=== PATIENT | female | born 1985 | race Caucasian/White ===

== ENCOUNTER 2017-02-24 09:04 | Emergency (ER) | payer SELFPAY ==
[2017-02-24 09:45] LABS: Hematocrit 39.5 % (36.0-47.0); Mean Platelet Volume 6.8 fL (7.4-10.4); Red Blood Cell (RBC) Count 3.77 mill/uL (4.20-5.40)
[2017-02-24 10:08] LABS: #Lymphocytes 1.8 thou/uL (1.20-3.40); #Monocytes 0.2 thou/uL (0.11-0.59); %Basophils 0.3 % (0.0-1.0); %Eosinophils 0.1 % (0.0-10.0); %Lymphocytes 29.5 % (21.0-51.0); %Monocytes 3.8 % (0.0-10.0); Macrocytosis SLIGHT = 6-15 cells (100X) (0-5/hpf)
[2017-02-24 10:48] LABS: Bilirubin Negative (Negative); Blood, Urine Moderate (Negative); Glucose, Urine (Dipstick) Negative (Negative); Ketone, Urine Negative (Negative); Nitrite Negative (Negative); Protein, Urine (Dipstick) Negative (Neg-Trace)
[2017-02-24 10:51] LABS: Bacteria/HPF None Seen HPF (None Seen); Hyaline Casts/LPF 4-6 HYALINE CAST LPF (0-3 Hyaline); Squamous Epithelial 0-3 HPF (0-3); WBC/HPF 0-3 HPF (0-3)
== END 2017-02-24 11:14 | disposition home or self-care (01) ==
LOC: ERS 09:04
DX: N92.0 Excessive and frequent menstruation with regular cycle (principal); J45.909 Unspecified asthma, uncomplicated; Z87.891 Personal history of nicotine dependence
CPT/HCPCS: 36415; 81003; 81015; 81025; 85025; 99284

== ENCOUNTER 2018-04-26 19:02 | Emergency (ER) | payer OTHER ==
--- NOTE | 2018-04-26 20:15 | RAD ---
PORTABLE CHEST ONE VIEW: 04/26/18 at 8:08 p.m. HISTORY: Cough and wheezing. FINDINGS: The heart size is normal. The lungs are well expanded without focal areas of consolidation, pneumotho races or pleural effusions. IMPRESSION: No radiographic evidence of acute cardiopulmonary process. POS: [facility]
== END 2018-04-26 20:17 | disposition home or self-care (01) ==
LOC: SCSER 19:02
DX: O99.512 Diseases of the respiratory system complicating pregnancy, second trimester (principal); J20.9 Acute bronchitis, unspecified; O99.332 Smoking (tobacco) complicating pregnancy, second trimester; Z3A.19 19 weeks gestation of pregnancy
CPT/HCPCS: 71045; 87804; 94640; J7620

== ENCOUNTER 2018-05-09 10:38 | Outpatient (CLI) | payer OTHER ==
--- NOTE | 2018-05-09 12:34 | ULT ---
OBSTETRIC SONOGRAM: HISTORY: evaluation. Second trimester gestation. FINDINGS: Multiple transabdominal sonographic views of the gravid uterus show a single intrauterine gestation i n cephalic presentation. Grade 0 placenta is posterior. The lower placental margin is approximately 2 cm from the internal cervical os. Amniotic fluid is within normal limits. Umbilical cord shows a normal insertion. Only 2 umbilical vessels are visualized sonographically. No gross intracranial abnormalities. spine and kidneys are intact as visualized. Measurements are as follows: Biparietal diameter 19 weeks 5 days Head circumference 20 weeks 2 days Abdominal circumference 21 weeks 3 days Femur length 21 weeks 6 days Estimated date of delivery based on today's sonogram is 09/20/2018. Hadlock percentile 33%. IMPRESSION: 1. Single viable intrauterine gestation with estimated gestational age based on today's sonogram of 20 weeks 6 days. 2. Low-lying placenta. 3. Two-vessel umbilical cord. POS: [facility]
== END 2018-05-09 10:39 | disposition home or self-care (01) ==
LOC: BICULT 10:38
PROVIDERS: ATTEND Family Medicine
DX: Z34.82 Encounter for supervision of other normal pregnancy, second trimester (principal); Z3A.20 20 weeks gestation of pregnancy
CPT/HCPCS: 76805

== ENCOUNTER 2018-08-10 08:17 | Emergency (ER) | payer OTHER ==
[2018-08-10] MEDS ORDERED: Acetaminophen 325 MG TAB ONE (09:15)
[2018-08-10 09:48] LABS: Bilirubin Negative (Negative); Blood, Urine Negative (Negative); Clarity CLEAR (Clear); Glucose, Urine (Dipstick) Negative (Negative); Leukocyte Negative (Negative); Nitrite Negative (Negative); Protein, Urine (Dipstick) Negative (Neg-Trace); Specific Gravity, Urine 1.008 (1.002-1.036); pH, Urine 7.5 (5.0-9.0)
== END 2018-08-10 10:05 | disposition home or self-care (01) ==
LOC: ERS 08:17 → L&D/OP 08:17 → EDSTATUS 08:26 → ERS 10:05
DX: O99.89 Other specified diseases and conditions complicating pregnancy, childbirth and the puerperium (principal); S39.012A Strain of muscle, fascia and tendon of lower back, initial encounter; S29.012A Strain of muscle and tendon of back wall of thorax, initial encounter; O99.513 Diseases of the respiratory system complicating pregnancy, third trimester; J45.909 Unspecified asthma, uncomplicated; Z87.891 Personal history of nicotine dependence; X58.XXXA Exposure to other specified factors, initial encounter; Z3A.35 35 weeks gestation of pregnancy
CPT/HCPCS: 81003; 99283

== ENCOUNTER 2018-09-11 09:59 | Inpatient (IN) | payer OTHER ==
[2018-09-11] MEDS ORDERED: Lidocaine 2% MPF 10 ML AMP (For Epidural Use) ONE (11:11)
[2018-09-11] MEDS ORDERED: NS w/ Oxytocin 10 units 500 ML ONE (11:28)
[2018-09-11] MEDS ORDERED: Butorphanol Tartrate 1 MG/ML VIAL SLOW IVP PRN (11:39)
[2018-09-11] MEDS ORDERED: NS / Oxytocin 40 units/1000ml 1,000 ML IV PRN (11:39)
[2018-09-11] MEDS ORDERED: Ondansetron PF 4 MG/2 ML Vial IVP PRN ×3 (11:39→21:14)
[2018-09-11] MEDS ORDERED: Lidocaine 1% (PF) 30 ML VIAL SC PRN (11:39)
[2018-09-11] MEDS ORDERED: Ibuprofen 800 MG TAB PO PRN (11:39)
[2018-09-11] MEDS ORDERED: Methylergonovine 0.2 MG/ML VIAL IM PRN (11:39)
[2018-09-11] MEDS ORDERED: Promethazine HCl 25 MG/ML VIAL IM PRN ×2 (11:39→14:30)
[2018-09-11] MEDS ORDERED: Misoprostol 200 MCG TAB PR PRN (11:39)
[2018-09-11] MEDS ORDERED: Carboprost 250 MCG/ML AMP IM PRN (11:39)
[2018-09-11] MEDS ORDERED: Diphenoxylate HCl/Atropine Tablet PO PRN (11:39)
[2018-09-11] MEDS ORDERED: HYDROcodone/Acetaminophen 5/325 mg Tablet PO PRN ×3 (11:39→21:14)
[2018-09-11] MEDS ORDERED: NS w/ Oxytocin 10 units 500 ML IV SCH ×2 (11:45)
[2018-09-11] MEDS: Lactated Ringer's 1,000 ML IV SCH ×2 (11:50→14:01)
[2018-09-11 12:30] LABS: Mean Corpuscular Hemoglobin 34.5 pg (27.0-31.0); Mean Corpuscular Volume 98.4 fL (78.0-98.0); Mean Platelet Volume 7.6 fL (7.4-10.4); Platelet Count 156 thou/uL (130-400); RBC Distribution Width 12.5 % (11.5-14.5); Red Blood Cell (RBC) Count 3.47 mill/uL (4.20-5.40); White Blood Cell (WBC) Count 7.7 thou/uL (4.8-10.8)
[2018-09-11 12:46] VITALS: BMI 28.4
[2018-09-11 13:13] LABS: Syphilis Antibody Nonreactive (Nonreactive); Syphilis Antibody Index 0.03 S/CO (<1.00 Non-Reactive)
[2018-09-11 13:14] LABS: HBSAg Index 0.41 S/CO (0-0.99); Hep B Surf Ag Non-Reactive S/CO (NonReactive)
[2018-09-11] MEDS ORDERED: Fentanyl 4 mcg/Bup 0.1% Cadd 100 ML ONE (13:56)
[2018-09-11] MEDS ORDERED: Eucerin (Mineral Oil/Petrolatum,White) 30 gm Jar TOP PRN (14:30)
[2018-09-11] MEDS ORDERED: diphenhydrAMINE 50 MG/ML VIAL IVP PRN (14:30)
[2018-09-11] MEDS ORDERED: Acetaminophen 325 MG TAB PO PRN (14:30)
[2018-09-11] MEDS ORDERED: Communication Order-Pharmacy FS SCH (14:30)
[2018-09-11] MEDS ORDERED: Naloxone HCl 0.4 mg/ml Vial IVP PRN ×2 (14:30)
[2018-09-11] MEDS ORDERED: ePHEDrine/0.9% NaCl/PF SYRINGE 50 mg/10 ml SLOW IVP PRN (14:30)
[2018-09-11] MEDS ORDERED: Lactated Ringer's 500 ML IV PRN (14:30)
[2018-09-11] MEDS ORDERED: Fentanyl 4 mcg/Bupivacaine 0.1% Cassette 100 ML EPIDURAL SCH (14:30)
[2018-09-11] MEDS ORDERED: Lanolin Ointment 7 GM TUBE TOP PRN (21:14)
[2018-09-11] MEDS ORDERED: Milk Of Magnesia 30 ML UDCUP PO PRN (21:14)
[2018-09-11] MEDS ORDERED: Bisacodyl 10 MG SUPP PR PRN (21:14)
[2018-09-11] MEDS ORDERED: Benzocaine-Menthol 82.5 ML CAN TOP PRN (21:14)
[2018-09-11] MEDS ORDERED: NS / Oxytocin 40 units/1000ml 1,000 ML IV SCH (21:14)
[2018-09-11] MEDS ORDERED: diphenhydrAMINE 25 MG CAP PO PRN (21:14)
[2018-09-11] MEDS: Ibuprofen 800 MG TAB PO SCH (21:26)
[2018-09-11] MEDS ORDERED: Docusate Calcium (SURFAK) 240 MG CAP PO SCH (21:45)
[2018-09-12] MEDS: Ibuprofen 800 MG TAB PO SCH ×2 (05:54→14:38)
[2018-09-12 07:35] LABS: Hemoglobin 10.7 g/dL (12.0-16.0); Mean Corpuscular HGB CONC 35.1 g/dL (32.0-36.0); Mean Corpuscular Hemoglobin 34.7 pg (27.0-31.0); Mean Corpuscular Volume 98.8 fL (78.0-98.0); Mean Platelet Volume 7.6 fL (7.4-10.4); Platelet Count 141 thou/uL (130-400); RBC Distribution Width 12.5 % (11.5-14.5); Red Blood Cell (RBC) Count 3.08 mill/uL (4.20-5.40); White Blood Cell (WBC) Count 7.1 thou/uL (4.8-10.8)
[2018-09-12] MEDS ORDERED: Prenatal Vitamin 1 TAB PO SCH (09:00)
[2018-09-12] MEDS: Docusate Calcium (SURFAK) 240 MG CAP PO SCH ×2 (09:12→19:47)
[2018-09-12] MEDS: Ferrous Sulfate 325 MG TAB PO SCH ×2 (09:13→18:19)
[2018-09-12 20:44] VITALS: BP 105/66; TEMP 97.8
== END 2018-09-12 19:55 | disposition home or self-care (01) | DRG 807 ==
LOC: L&D 09:59 → 3SW 22:32
PROVIDERS: ADMIT Family Medicine; ATTEND Family Medicine
PROC: 10E0XZZ Delivery of Products of Conception, External Approach (ICD-10-PCS; principal; 2018-09-11)
PROC: 3E0P7VZ Introduction of Hormone into Female Reproductive, Via Natural or Artificial Opening (ICD-10-PCS; 2018-09-11)
PROC: 3E033VJ Introduction of Other Hormone into Peripheral Vein, Percutaneous Approach (ICD-10-PCS; 2018-09-11)
DX: O35.8XX0 Maternal care for other (suspected) fetal abnormality and damage, not applicable or unspecified (principal); Z37.0 Single live birth; Z3A.39 39 weeks gestation of pregnancy; O99.334 Smoking (tobacco) complicating childbirth; F17.210 Nicotine dependence, cigarettes, uncomplicated
CPT/HCPCS: 36415; 51702; 85027; 86780; 86850; 86900; 86901; 87340; J2001; J2590

== ENCOUNTER 2023-04-05 12:03 | Emergency (ER) | payer SELFPAY | END 2023-04-05 13:20 | disposition left against medical advice (07) | LOC: ERS 12:03 | DX: Z53.21 Procedure and treatment not carried out due to patient leaving prior to being seen by health care provider (principal) ==

== ENCOUNTER 2024-02-12 20:12 | Emergency (ER) | payer SELFPAY ==
[2024-02-12 20:44] LABS: Bacteria/HPF None Seen HPF (None Seen); Bilirubin Negative (Negative); Blood, Urine Trace (Negative); CAUTI Indications for Culture Pelvic or flank pain; Clarity Turbid (Clear); Glucose, Urine (Dipstick) Normal (Negative); Ketone, Urine Negative (Negative); Leukocyte 250 Leu/uL (Negative); Nitrite Negative (Negative); Protein, Urine (Dipstick) Negative (Neg-Trace); RBC/HPF 0-3 HPF (0-3); Specific Gravity, Urine 1.004 (1.002-1.036); Urobilinogen Normal mg/dL (Less than 2); WBC/HPF 0-3 HPF (0-3)
[2024-02-12 20:46] LABS: Urine Culture Reflex No No
[2024-02-12 21:16] LABS: #Basophils Less than 0.03 10x3/uL (0.0-0.2); #Eosinophils Less than 0.03 10x3/uL (0.0-0.7); %Basophils 0.2 % (0.0-1.0); %Lymphocytes 10.8 % (21.0-51.0); %Monocytes 3.7 % (0.0-10.0); %Neutrophils 84.8 % (42.0-75.0); Hematocrit 36.7 % (36.0-47.0); Hemoglobin 12.3 g/dL (12.0-16.0); Mean Corpuscular HGB CONC 33.5 g/dL (32.0-36.0); Mean Corpuscular Volume 101.4 fL (78.0-98.0); Mean Platelet Volume 9.4 fL (7.4-10.4); Platelet Count 190 10x3/uL (130-400); RBC Distribution Width 12.3 % (11.5-14.5); Red Blood Cell (RBC) Count 3.62 mill/uL (4.20-5.40)
[2024-02-12 21:33] LABS: ALT (SGPT) 17 U/L (8-55); AST (SGOT) 23 U/L (5-34); Albumin 4.3 g/dL (3.5-5.0); Alkaline Phosphatase 62 U/L (40-110); Anion Gap 14 mmol/L (10-20); BUN (Urea Nitrogen) 15 mg/dL (7.0-18.7); Bilirubin, Total 0.8 mg/dL (0.2-1.2); Calc. Creatinine Clearance 0 mL/min (70-130); Calcium 9.2 mg/dL (7.8-10.44); Carbon Dioxide 23 mmol/L (22-29); Chloride 109 mmol/L (98-107); Estimated GFR 65; Globulin 2.8 g/dL (2.4-3.5); Glucose 98 mg/dL (70-105); Lipase 40 U/L (8-78); Potassium 3.5 mmol/L (3.5-5.1); Protein, Total 7.1 g/dL (6.0-8.3); Sodium 142 mmol/L (136-145)
[2024-02-12] MEDS ORDERED: Ketorolac Tromethamine 30 MG (1 mL) VIAL ONE (21:50)
[2024-02-12] MEDS ORDERED: Ondansetron ODT 4 MG TAB ONE (21:51)
[2024-02-12 22:23] LABS: Pregnancy Test - Urine (BHCG) Negative (Negative); Pregu Control Background? CLEAR/WHITE (CLR/WHITE); Pregu Control Bar Appear? YES (CONTROL BAR); Specific Gravity 1.004 (1.002-1.036)
== END 2024-02-12 23:20 | disposition home or self-care (01) ==
LOC: ERS 20:12
DX: N10 Acute pyelonephritis (principal)
CPT/HCPCS: 36415; 80053; 81001; 81025; 83690; 85025; 96372; 99283; J1885; Q0162

== ENCOUNTER 2025-05-05 11:39 | Emergency (ER) | payer OTHER, SELFPAY | END 2025-05-05 12:21 | disposition home or self-care (01) | LOC: ERS 11:39 | DX: H66.91 Otitis media, unspecified, right ear (principal) | CPT/HCPCS: 99282 ==